=== PATIENT | male | born 1975 | race Hispanic/Latino ===

== ENCOUNTER → 2018-05-26 | Day surgery (SDC) | payer BC ==
[~2018-05-26] MED LIST: ACETAMINOPHEN 1000 MG/100 ML 100 ML IV ONE; AMLODIPINE BESYL5 MG PO; BUPIVACAINE 0.25% 30ML SDV INJ ONE; DEXAMETHASONE SOD PHOS INJ 4 MG/ML VIAL ONE; FENTANYL CITRATE/PF 100MCG/2 ML INJ ONE; GLYCOPYRROLATE INJ 1MG/ 5 ML SYR ONE; HYDROCODONE-ACE15 M2 PO; LIDOCAINE HCL 2% LOCAL INJ 5 ML SDV VIAL INJ ONE; MIDAZOLAM HCL 2 MG/2 ML VIAL ONE; NEOSTIGMINE 5 MG/5ML SYR ONE; ONDANSETRON HCL INJ 2 MG/ML VIAL ONE; PROPOFOL IV EMULSION 10 MG/ML 20 ML VIAL ONE; ROCURONIUM BROMIDE 10 MG/ML 5ML VIAL ONE; SEVOFLURANE INHAL SOLN 250 ML PEN BTL ONE
--- NOTE | 2018-05-26 09:31 | Operative Report ---
DATE OF PROCEDURE: May 26, 2018 PREOPERATIVE DIAGNOSES 1. Chronic adenotonsillitis. 2. Tonsilloliths. DICTATION STOPPED AT THIS POINT. Job#: [id number]
--- NOTE | 2018-05-26 10:06 | Operative Report ---
DATE OF PROCEDURE: May 26, 2018 PREOPERATIVE DIAGNOSES 1. Chronic adenotonsillitis. 2. Tonsilloliths. POSTOPERATIVE DIAGNOSES 1. Chronic adenotonsillitis. 2. Tonsilloliths. PROCEDURE: Tonsillectomy and adenoidectomy. SIGNIFICANT FINDINGS: Tonsils are 3+/3+ bilaterally, scarred, with copious amounts of tonsilloliths present in the superior aspects of the tonsils bilaterally. Adenoids are mildly hypertrophied. ANESTHESIA: General endotracheal tube anesthesia. SPECIMENS REMOVED: Tonsils (adenoids were coblated). ESTIMATED BLOOD LOSS: Less than 1 mL. COMPLICATIONS: None. INDICATIONS: The patient is a 42-year-old male with a 3 to 4 year history of foul-smelling, whitish-yellowish debris that emanates from the tonsils, worse on the right. He has associated right-sided throat pain. He is a nonsmoker. There has been no previous throat or neck surgery. On examination, the tonsils are 3+/3+, scarred, with tonsilloliths present in both tonsils. He is scheduled for tonsillectomy and adenoidectomy for the treatment of chronic adenotonsillitis and tonsilloliths. The risks and complications of the procedures were thoroughly discussed with the patient, and they include infection; bleeding; scarring; failure to improve; need for additional operations; damage to teeth, gums, tongue and lips; persistent throat symptoms; persistent tonsilliths; chronic throat pain; voice changes; numbness of the tongue; inability to taste; scarring of the pharynx resulting in worsening nasal obstruction; need for blood transfusions; damage to surrounding nerves, blood vessels and muscles. He fully understands and gives consent. PROCEDURE: Patient was taken to the operating room and placed supine on the operating table where general anesthesia was achieved through orotracheal intubation. Eyes were taped. Shoulder roll was placed. Head and body were draped. Table was turned 90 degrees with the head towards the surgeon. Kayden-Beka mouth gag was inserted without difficulty and placed in suspension on the Vazquez stand. There was no evidence of bifid uvula, diastasis of the muscular uvulae or notched hard palate. Red rubber catheters were then inserted into the nose and brought out through the mouth to retract the soft palate. Examination of the nasopharynx revealed the adenoids to be mildly hypertrophied. Tonsils were 3+/3+ bilaterally, scarred, with significant amount of tonsilloliths present in the superior aspects of the tonsils bilaterally. The left tonsil was grasped with a tonsillar Allis clamp and was removed with the ArthroCare coblator on a setting of 6 on cut mode, taking care to stay around the capsule of the tonsil. The right tonsil was removed in the same way. Hemostasis was obtained with the coblator on a setting of 3 on coag mode. The adenoids were then removed with the ArthroCare coblator on a setting of 8 on cut mode, taking care to avoid trauma to the torus tubarius bilaterally. Hemostasis was obtained with the coblator on a setting of 3 and coag mode. Injection with 3 mL of 1/4 percent plain Marcaine was injected into the free edges of the anterior and posterior tonsillar pillars. Thorough irrigation was then performed. Stomach contents were suctioned with an NG tube. The red rubber catheters and Kayden-Beka mouth gag were then removed without difficulty, revealing no trauma to the teeth, tongue, gums and lips. Patient was awakened in the operating room, extubated and taken to the recovery room in good condition. Job#: [id number] NIRMAL CHAN
== END | disposition home or self-care (01) ==
LOC: OR 05:45
PROVIDERS: ATTEND Otolaryngology
DX: J35.03 Chronic tonsillitis and adenoiditis (principal); I10 Essential (primary) hypertension; R00.1 Bradycardia, unspecified; N20.0 Calculus of kidney
CPT/HCPCS: 42821; 88304; 93005; J1100; J2001; J2250; J2405; J3490

== ENCOUNTER 2018-06-01 00:09 | Observation (INO) | payer BC ==
[~2018-06-01] VITALS: Ht 175.3 cm; Wt 92.8 kg
[~2018-06-01 00:09] MED LIST changes: -ACETAMINOPHEN 1000 MG/100 ML 100 ML IV ONE; -BUPIVACAINE 0.25% 30ML SDV INJ ONE; -DEXAMETHASONE SOD PHOS INJ 4 MG/ML VIAL ONE; -FENTANYL CITRATE/PF 100MCG/2 ML INJ ONE; -GLYCOPYRROLATE INJ 1MG/ 5 ML SYR ONE; -HYDROCODONE-ACE15 M2 PO; -LIDOCAINE HCL 2% LOCAL INJ 5 ML SDV VIAL INJ ONE; -MIDAZOLAM HCL 2 MG/2 ML VIAL ONE; -NEOSTIGMINE 5 MG/5ML SYR ONE; -ONDANSETRON HCL INJ 2 MG/ML VIAL ONE; -PROPOFOL IV EMULSION 10 MG/ML 20 ML VIAL ONE; -ROCURONIUM BROMIDE 10 MG/ML 5ML VIAL ONE; -SEVOFLURANE INHAL SOLN 250 ML PEN BTL ONE
[2018-06-01] MEDS ORDERED: SODIUM CHLORIDE 0.9% 1000ML 1,000 ML ONE (00:18)
[2018-06-01 00:24] LABS: BASOPHILS % 0.3 % (0.0-1.0); EOSINOPHILS % 0.3 % (0.0-6.0); HEMATOCRIT 45.5 % (38.2-49.6); HEMOGLOBIN 15.7 g/dL (14.0-18.0); LYMPHOCYTES % 12.8 % (18.0-39.1); MEAN CORPUSCULAR HEMOGLOBIN 31.3 pg (28-32); MEAN CORPUSCULAR HGB CONC 34.5 g/dL (31-35); MEAN CORPUSCULAR VOLUME 90.6 fL (81-99); MONOCYTES # (AUTO) 0.7 (0.2-0.8); MONOCYTES % 4.2 % (4.4-11.3); NEUTROPHILS # (AUTO) 12.6 (2.1-6.9); PLATELET COUNT 454 x10e3/uL (140-360); RED BLOOD COUNT 5.02 x10e6/uL (4.3-5.7)
[2018-06-01] MEDS ORDERED: SODIUM CHLORIDE 0.9% 1000ML 1,000 ML IV SCH (00:30)
[2018-06-01 00:33] LABS: INR 1.13; PROTHROMBIN TIME 13.6 seconds (11.9-14.5)
[2018-06-01 00:34] LABS: PARTIAL THROMBOPLASTIN TIME 28.9 seconds (23.8-35.5)
[2018-06-01 00:43] LABS: ALANINE AMINOTRANSFERASE 53 IU/L (0-55); ALBUMIN 4.2 g/dL (3.5-5.0); ALBUMIN/GLOBULIN RATIO 0.9 (0.8-2.0); ALKALINE PHOSPHATASE 109 IU/L (40-150); ANION GAP 17.4 mmol/L (8-16); BLOOD UREA NITROGEN 15 mg/dL (7-26); BUN/CREATININE RATIO 14 (6-25); CALCIUM 10.1 mg/dL (8.4-10.2); CARBON DIOXIDE 28 mmol/L (22-29); CHLORIDE 100 mmol/L (98-107); CREATININE, SERUM 1.07 mg/dL (0.72-1.25); EST GLOMERULAR FILTRATION RATE > 60 ML/MIN (60-); GLUCOSE 121 mg/dL (74-118); POTASSIUM 3.4 mmol/L (3.5-5.1); SODIUM 142 mmol/L (136-145)
[2018-06-01] MEDS ORDERED: BUPIVACAINE 0.25% 30ML SDV INJ ONE (01:02)
--- NOTE | 2018-06-01 01:02 | History and Physical ---
CHIEF COMPLAINT: Throat bleeding. HISTORY OF PRESENT ILLNESS: Patient is a 42-year-old male who underwent tonsillectomy and adenoidectomy on Saturday, May 26, 2018, at [facility]. Patient did well until 9 p.m. last evening when he began to have oropharyngeal bleeding, believed to be on the right side on an intermittent basis. Patient continues to bleed despite gargling with ice water. Patient presented to the [facility] Emergency Room where he was evaluated. PAST MEDICAL HISTORY: Hypertension. MEDICATIONS: Amlodipine. PAST SURGICAL HISTORY: Right knee surgery, vasectomy, tonsillectomy and adenoidectomy. DRUG ALLERGIES: NONE KNOWN. SOCIAL HISTORY: He is a nonsmoker and nondrinker. PHYSICAL EXAMINATION GENERAL: Patient is a male appearing of stated age. No apparent distress. HEENT: Active bleeding within his oropharynx. Ears are clear. Face is symmetric. Nasal exam is clear. Oral cavity and oropharynx reveal blood clot on the right tonsillar bed with active bleeding. NECK: Supple with full range of motion. There is no palpable lymphadenopathy. ASSESSMENT: Post-tonsillectomy hemorrhaging. PLAN: We will draw a CBC in the emergency room, keep n.p.o. and proceed to the operating room for operative control of post-tonsillectomy hemorrhage. Job#: [id number] CF DUSTIN
[2018-06-01] MEDS ORDERED: SODIUM CHLORIDE 0.9% 1000ML 1,000 ML IV ONE (01:06)
[2018-06-01 02:55] VITALS: BP 125/68
--- NOTE | 2018-06-01 03:11 | Operative Report ---
DATE OF PROCEDURE: June 01, 2018 PREOPERATIVE DIAGNOSIS: Right-sided post tonsillectomy hemorrhage. POSTOPERATIVE DIAGNOSIS: Right-sided post tonsillectomy hemorrhage. PROCEDURE: Operative control of right-sided post tonsillectomy hemorrhage. COMPLICATIONS: None. ESTIMATED BLOOD LOSS: 60 mL. ANESTHESIA: General endotracheal tube anesthesia. FINDINGS: Pinpoint bleeding site from the midportion of the right lateral tonsillar bed. Copious amounts of old blood in the stomach, which was suctioned thoroughly. INDICATIONS: Patient is a 42-year-old male who underwent tonsillectomy on Saturday, May 26, 2018. Patient did well until last evening at 9 p.m. when he began to experience bleeding from the right tonsillar bed. The bleeding would slow down intermittently with ice water gargles, but did not resolve completely, so he presented to the [facility] Emergency Room where he continued to bleed. Examination reveals active bleeding from the right tonsillar bed. He is scheduled for operative control of right-sided post tonsillectomy hemorrhage under general anesthesia. Risks and complications of the procedure were thoroughly discussed with patient and his and they included infection; bleeding; scarring; failure to improve; need for additional operations; persistent bleeding and need for further surgery; damage to teeth, gums, tongue, and lips; chronic pain; voice changes; numbness to the tongue; inability to taste; need for blood transfusions; damage to surrounding nerves, blood vessels, and muscles. They fully understand and gave consent. DESCRIPTION OF PROCEDURE: The patient was taken to the operating room and placed supine on the operating table where general anesthesia was achieved through orotracheal intubation. Following this, head and body were draped. Table was turned 90 degrees with the head towards the surgeon. Kayden-Beka mouth gag was inserted without difficulty and placed in the suspension on the Vazquez stand. Thorough suctioning of the oropharynx revealed blood clots on the right tonsillar bed, which were evacuated with Louis suction. A pinpoint bleeding site was seen at midportion of the right tonsillar bed near the anterior tonsillar pillar. This was addressed with the ArthroCare Coblator on a setting of 3 on coag mode. Following this, the bleeding ceased. Thorough irrigation was then performed of the oropharynx as well as to the nasal cavity to evacuate any blood clots that may have been present. Following irrigation, the stomach contents were suctioned of copious amounts of old blood. Multiple passes with NG tube were made in order to be thorough suctioning the stomach contents. Following this, the Kayden-Beka mouth gag was then taken out of suspension and was removed without difficulty revealing no trauma to the teeth, gums, tongue, and lips. Patient was awakened in the operating room, extubated, and taken to the recovery room in good condition. Job#: [id number] DR CHAN
[2018-06-01] MEDS ORDERED: HYDROCODONE BIT/ACETAMINOPHEN 2.5 MG/108MG PER 5 ML SOLUTION PO PRN (03:15)
[2018-06-01] MEDS ORDERED: D5.45%NS/KCL 20MEQ 1,000 ML IV SCH (03:15)
[2018-06-01 03:20] VITALS: BP 125/68
[2018-06-01 05:22] LABS: HEMATOCRIT 34.7 % (38.2-49.6); HEMOGLOBIN 11.8 g/dL (14.0-18.0)
[2018-06-01 05:54] VITALS: BP 125/68
[2018-06-01 08:03] VITALS: BP 127/72
[2018-06-01 08:35] VITALS: BP 127/72
[2018-06-01] MEDS ORDERED: AMLODIPINE BESYLATE 5 MG TAB PO SCH (09:00)
[2018-06-01] MEDS ORDERED: HYDROCODONE-ACE15 M2 PO (09:43)
[2018-06-01] MEDS ORDERED: ROCURONIUM BROMIDE 10 MG/ML 5ML VIAL ONE (13:41)
[2018-06-01] MEDS ORDERED: PROPOFOL IV EMULSION 10 MG/ML 20 ML VIAL ONE (13:41)
[2018-06-01] MEDS ORDERED: DEXAMETHASONE SOD PHOS INJ 4 MG/ML VIAL ONE (13:41)
[2018-06-01] MEDS ORDERED: ONDANSETRON HCL INJ 2 MG/ML VIAL ONE (13:41)
[2018-06-01] MEDS ORDERED: LIDOCAINE HCL 2% LOCAL INJ 5 ML SDV VIAL INJ ONE (13:41)
[2018-06-01] MEDS ORDERED: SUCCINYLCHOLINE 200 MG/10 ML SYR ONE (13:41)
[2018-06-01] MEDS ORDERED: SEVOFLURANE INHAL SOLN 250 ML PEN BTL ONE (13:41)
[2018-06-01] MEDS ORDERED: METOCLOPRAMIDE HCL 10 MG/2ML VIAL ONE (13:41)
[2018-06-01] MEDS ORDERED: FENTANYL CITRATE/PF 100MCG/2 ML INJ ONE (14:24)
[2018-06-01] MEDS ORDERED: MIDAZOLAM HCL 2 MG/2 ML VIAL ONE (14:24)
== END 2018-06-01 10:15 | disposition home or self-care (01) ==
LOC: ER 00:09 → OR 00:16 → MED/SURG 02:58
PROVIDERS: ADMIT Otolaryngology; ATTEND Otolaryngology
DX: J95.831 Postprocedural hemorrhage of a respiratory system organ or structure following other procedure (principal); I10 Essential (primary) hypertension
CPT/HCPCS: 36415; 42961; 80053; 85014; 85018; 85025; 85610; 85730; 86850; 86900; 99284; G0378; J1100; J2001; J2250; J2405; J2765; J7030